=== PATIENT | female | born 1960 | race Caucasian/White ===

== ENCOUNTER → 2022-02-19 | Outpatient (CLI) | payer BC ==
[~2022-02-19] MED LIST: FLEXERIL 10 MG10 MG PO; NAPROSYN500 MG PO
== END ==
LOC: KOH-I 10:15
DX: R11.0 Nausea (principal); K80.20 Calculus of gallbladder without cholecystitis without obstruction
CPT/HCPCS: 76705

== ENCOUNTER → 2022-03-20 | Outpatient (CLI) | payer BC ==
[~2022-03-20] MED LIST changes: +ADVIL COLD & S1 EACH PO; +ATIVAN1 MG PO; +DAILY VALUE1 EACH PO; +IBU600 MG PO; +PROBIO 5 PO; +PROTONIX20 MG PO; +VITAMIN D3125 MCG PO; +WELLBUTRIN XL300 MG PO; +[UNRECOGNIZED DRUG - OTHER] PO
== END ==
LOC: OPSV2 12:30
DX: Z01.810 Encounter for preprocedural cardiovascular examination (principal)
CPT/HCPCS: 93005

== ENCOUNTER 2022-04-03 12:57 | Emergency (ER) | payer BC ==
[2022-04-03 13:29] LABS: HEMOGLOBIN 14.4 gm/dl (12.3-15.3); RED BLOOD COUNT 4.83 M/UL (4.00-5.10); WHITE BLOOD COUNT 8.3 K/UL (4.5-11.0)
[2022-04-03 13:51] LABS: BUN/CREATININE RATIO 21 (0-10)
== END 2022-04-03 17:50 | disposition home or self-care (01) ==
LOC: ER1 12:57
DX: R53.83 Other fatigue (principal); U09.9 Post COVID-19 condition, unspecified; Z88.1 Allergy status to other antibiotic agents
CPT/HCPCS: 71045; 80053; 81001; 82550; 82553; 84484; 85025; 93005; 99285